=== PATIENT | female | born 1970 | race Two or more races ===

== ENCOUNTER 2024-10-29 09:58 | Day surgery (SDC) | payer MEDICAID, OTHER ==
[~2024-10-29] VITALS: Ht 165.1 cm; Wt 113.4 kg
[~2024-10-29 09:58] MED LIST: ATOR-507 PO; BENZ1TAB6 PO; FLUO20TA42 PO; FLUP10TA11 PO; GARL1000 PO; LEVO25TA6 PO; MULT-1153 PO; OMEG-20 PO; OMEP-448 PO; QUET300T14 PO; SEMA2INJ3 SC
--- NOTE | 2024-10-29 11:46 | DVHHP2 ---
GI H&P Pre-Op Assessment Date: 10/29/24 Chief complaint: + FIT HPI: per clinic note Past medical history: per clinic note Past surgical history: per clinic note Family history: per clinic note Physical exam: General: NAD, AAOX3 HEENT: PERRL, no scleral icterus, normal hearing, gums without lesions or bleeding, oropharynx clear without erythema or exudate. Neck: Supple without enlargement of the thyroid, or lymphadenopathy. Chest: Normal size and shape, no tenderness, lung justice clear to auscultation and percussion, nonlabored breathing. Heart: RRR, no murmur Abdomen: non-distended, no tenderness to palpation, +BS, no hepatosplenomegaly Extremities: no edema Neurological: CN II-XII intact, sensation intact in all extremities, 5+ strength in all extremities Skin: No rashes, No jaundice Assessment: - + FIT Plan: - Colonoscopy - Risks (bleeding, infection, perforation, reaction to sedation medications and cardiopulmonary arrest) and benefit of the procedure were explained to patient. Patient agrees to undergo the procedure. VIDHI LEIVA MD Oct 29, 2024 11:46
[2024-10-29] MEDS ORDERED: PROPOFOL 10 MG/ML 20 ML IV ONE (11:51)
[2024-10-29] MEDS ORDERED: LIDOCAINE 2% (LOCAL ANESTH.) PF 5ml SDV ONE (11:51)
[2024-10-29] MEDS ORDERED: MIDAZOLAM HCL 2MG/2ML 2ml VIAL (1mg/ml) ONE (11:51)
[2024-10-29] MEDS ORDERED: KETAMINE 50mg/ML 1ml syringe ONE (12:13)
[2024-10-29 12:24] VITALS: PULSE 90; RESP 20; TEMP 97.2; O2SAT 98
--- NOTE | 2024-10-29 12:26 | DVHDS2 ---
Physician Discharge Progress N Final Diagnosis: diverticulosis Operations or Procedures: Operations or Procedures colonoscopy Condition on Discharge: Good Disposition: Home Discharge Instructions: Diet: Regular Activity: No Restrictions, As Tolerated Medications: resume previous home medications Follow Up Care: Discharge Statement: "Patient was advised to return to the ER or call 911 if any headaches, dizziness, shortness of breath, chest pain, abdominal pain, bleeding, fevers, or worsening of medical condition. Patient was counseled about treatment plan, medications, possible side effects, patientverbalized understanding. All questions were answered to the best of my ability. This discharge took greater then 30 minutes in planning, reviewing documentation, counseling the patient, and discussing with other team members." VIDHI LEIVA MD Oct 29, 2024 12:26
--- NOTE | 2024-10-29 12:26 | DVHOP2 ---
Operative Report DATE OF OPERATION: 10/29/24 PROCEDURE: Colonoscopy. PREOPERATIVE INDICATION: The patient is a 54 -year-old female undergoing colonoscopy for positive FIT test. POSTOPERATIVE DIAGNOSES: 1. Few diverticulosis PROCEDURE PERFORMED BY: Marlon Parker M.D. SCOPE: Olympus videocolonoscope. ASA CLASS: 3 PREOPERATIVE MEDICATIONS: MAC with Dr Monahan PROCEDURE IN DETAIL: After obtaining an informed consent, the patient was placed on left lateral decubitus position. She was then sedated with the above medications. A rectal examination was performed that was normal. The colonosco pe was then passed through the anus into the rectosigmoid and through the descending, transverse, and ascending colon up to the cecum with visualization of the appendiceal orifice, base of the cecum and the ileocecal valve. No mass or polyp was observed. There was a few diverticulosis. The colonoscope was then withdrawn. The patient tolerated the procedure well without difficulty. WITHDRAWAL TIME: 6 minutes QUALITY OF THE PREP: [place] Bowel Prep score: 5 COMPLICATIONS : None SPECIMENS: None DISPOSITION: D/C to home PLAN: 1. Repeat colonoscopy in 10 years for colon cancer screening. MARLON PARKER MD Oct 29, 2024 12:25
[2024-10-29 13:09] VITALS: BP 139/89; PULSE 90; RESP 18; O2SAT 94
== END 2024-10-29 13:10 | disposition home or self-care (01) ==
LOC: GI 09:58
PROVIDERS: ATTEND Internal Medicine Gastroenterology
DX: R19.5 Other fecal abnormalities (principal); K57.30 Diverticulosis of large intestine without perforation or abscess without bleeding; E11.9 Type 2 diabetes mellitus without complications; K21.9 Gastro-esophageal reflux disease without esophagitis; E03.9 Hypothyroidism, unspecified; F32.A Depression, unspecified; Z90.49 Acquired absence of other specified parts of digestive tract
CPT/HCPCS: 45378; 82962; J2003; J2250; J2704; J7030